=== PATIENT | female | born 1970 | race Caucasian/White ===

== ENCOUNTER 2024-10-08 15:37 | Outpatient (CLI) | payer BC, SELFPAY ==
[2024-10-10 16:49] LABS: HPV Source Cervix; HPV, High Risk by TMA Not Detected
== END 2024-10-08 15:38 | disposition home or self-care (01) ==
PROVIDERS: Visit Provider Registered Nurse
DX: Z12.4 Encounter for screening for malignant neoplasm of cervix (principal); Z11.51 Encounter for screening for human papillomavirus (HPV)
CPT/HCPCS: 87624; 87625; 88141; 88142

== ENCOUNTER 2024-10-17 07:55 | Outpatient (CLI) | payer BC, SELFPAY | END 2024-10-17 07:56 | disposition home or self-care (01) | LOC: NFLDREF 10-24 00:31 | PROVIDERS: Visit Provider Registered Nurse | DX: Z00.00 Encounter for general adult medical examination without abnormal findings (principal); Z13.6 Encounter for screening for cardiovascular disorders | CPT/HCPCS: 80061 ==

== ENCOUNTER 2024-11-27 13:20 | Outpatient (CLI) | payer BC, SELFPAY ==
--- NOTE | 2024-11-27 13:40 | CRLHL7_ITS ---
For Patients: As a result of the Cures Act, medical imaging exams and procedure reports are released immediately into your electronic medical record. You may view this report before your referring provider. If you have questions, please contact your health care provider. BILATERAL DIGITAL SCREENING MAMMOGRAM WITH COMPUTER-AIDED DETECTION AND TOMOSYNTHESIS CLINICAL HISTORY: : Routine screening exam. COMPARISON: No comparison TECHNIQUE: Digital mammogram in CC and MLO projections including computer-aided detection (CAD). Tomosynthesis was utilized. BREAST COMPOSITION: The breasts are extremely dense, which lowers the sensitivity of mammography. FINDINGS: RIGHT Breast: No suspicious findings. LEFT Breast: Asymmetry left breast 2 o`clock position 7 cm from the nipple. IMPRESSION: LEFT breast asymmetry/mass. RECOMMENDATIONS: Additional mammographic views of the LEFT breast including CC MLO spot-compression view 90 degree lateral view . LEFT breast ultrasound may also be required. A member of the health care team will contact the patient to schedule the required additional imaging appointment(s). BI-RADS Category 0: Incomplete: Need Additional Imaging Evaluation Dictated by Carlene Donahue MD @ 11/29/2024 7:37:37 AM Dictated by: Carlene Donahue MD @ 11/29/2024 07:37:48 (Electronically Signed)
== END 2024-11-27 13:21 | disposition home or self-care (01) ==
LOC: MAMMO 13:21
PROVIDERS: Visit Provider Registered Nurse
DX: Z12.31 Encounter for screening mammogram for malignant neoplasm of breast (principal); R92.343 Mammographic extreme density, bilateral breasts; N63.20 Unspecified lump in the left breast, unspecified quadrant
CPT/HCPCS: 77063; 77067

== ENCOUNTER 2024-12-08 10:31 | Outpatient (CLI) | payer BC, SELFPAY ==
--- NOTE | 2024-12-08 10:45 | CRLHL7_ITS ---
For Patients: As a result of the Cures Act, medical imaging exams and procedure reports are released immediately into your electronic medical record. You may view this report before your referring provider. If you have questions, please contact your health care provider. DIGITAL DIAGNOSTIC LEFT MAMMOGRAM USING TOMOSYNTHESIS LEFT BREAST ULTRASOUND CLINICAL HISTORY: LEFT breast mass/asymmetry. COMPARISON: 11/27/2024. TECHNIQUE: Digital LEFT mammogram in three projections. Tomosynthesis was used in this interpretation. Real-time ultrasound imaging of LEFT breast with imaging documentation. Scanning was performed by both the technologist and the radiologist. BREAST COMPOSITION: The breasts are heterogeneously dense, which may obscure small masses. FINDINGS: 3D spot compression CC, 3D spot compression MLO and 3D true lateral LEFT breast mammogram images submitted. Simple cyst is present within the retroareolar plane. Adjacent to this cyst at 3 o`clock 4 cm from the nipple, there is an ill-defined area of hypoechoic tissue measuring approximately 7 x 9 millimeters. IMPRESSION: Indeterminate hypoechoic tissue LEFT breast 3 o`clock 4 cm from the nipple measuring 9 x 7 millimeters at posterior depth, adjacent to a benign cyst. RECOMMENDATIONS: Ultrasound-guided core needle biopsy. A lay language report of this examination will be provided to the patient. BI-RADS Category 4: Suspicious Dictated by Acosta Barahona MD @ 12/08/2024 11:44:11 AM jj/Dictated by: Acosta Barahona MD @ 12/08/2024 11:44:00 AM (Electronically Signed)
--- NOTE | 2024-12-08 11:15 | CRLHL7_ITS ---
For Patients: As a result of the Cures Act, medical imaging exams and procedure reports are released immediately into your electronic medical record. You may view this report before your referring provider. If you have questions, please contact your health care provider. SEE DIGITAL DIAGNOSTIC LEFT MAMMOGRAM PERFORMED SAME DAY CRL:gina fuentes/Dictated by: Acosta Barahona MD @ 12/08/2024 12:06:00 PM (Electronically Signed)
== END 2024-12-08 10:32 | disposition home or self-care (01) ==
LOC: MAMMO 10:31
PROVIDERS: Visit Provider Registered Nurse
DX: N63.20 Unspecified lump in the left breast, unspecified quadrant (principal); R92.8 Other abnormal and inconclusive findings on diagnostic imaging of breast
CPT/HCPCS: 76642; 77065; G0279

== ENCOUNTER 2024-12-12 10:01 | Outpatient (CLI) | payer BC, SELFPAY ==
--- NOTE | 2024-12-12 10:15 | CRLHL7_ITS ---
For Patients: As a result of the Century Cures Act, medical imaging exams and procedure reports are released immediately into your electronic medical record. You may view this report before your referring provider. If you have questions, please contact your health care provider. ULTRASOUND-GUIDED BREAST BIOPSY AND POST-BIOPSY DIGITAL MAMMOGRAM FOR BIOPSY MARKER PLACEMENT CLINICAL HISTORY: Indeterminate dense tissue. COMPARISON STUDIES: 12/08/2024. TECHNIQUE: Real-time ultrasound with image documentation was used for targeting the breast lesion. Core biopsy specimens were obtained using an automated gun with an 18-gauge biopsy needle. Post-biopsy CC and ML digital mammograms were obtained to document position of the biopsy marker. CONSENT and TIME OUT: The procedure, risks, and alternatives were explained to the patient and a consent was signed. Dickinson Protocol was followed including pre-procedure verification that relevant information/documentation was available, reviewed and properly matched to the patient; consent accurate and complete; and equipment and supplies available. Time Out was conducted just prior to starting procedure to verify the four required elements: patient identity, correct side/site marked (if applicable), procedure, relevant images/results properly labeled and displayed (if applicable). PROCEDURE: The patient was positioned supine on the ultrasound table. The breast was prepped with ChloraPrep. 8 cc 1 percent lidocaine for local anesthesia. Core samples were obtained. A sterile metal biopsy clip was placed percutaneously to tyrell the lesion position within the breast. The specimens were placed in 10% formalin and sent to the pathology department. Pressure was held on the biopsy site until all bleeding subsided. The skin incision was closed with Steri-Strips. An ice pack was positioned over the biopsy site. Post-biopsy instructions were reviewed with the patient, and a written copy was given to her. LATERALITY: LEFT breast. LESION: Subtle dense heterogeneous tissue just lateral to a known cyst at 3 o`clock 4 cm from the nipple measuring approximately 7 millimeters. SUSPICION FOR MALIGNANCY: Intermediate. NUMBER OF SAMPLES: 8. BIOPSY CLIP SHAPE: Oval. PROXIMITY OF CLIP TO TARGET: Within the lesion. IMPRESSION: Ultrasound-guided breast biopsy. When the pathology report is available, an addendum to this report will be made. ACR not applicable Dictated by Acosta Barahona MD @ 12/12/2024 11:12:13 AM jj/Dictated by: Acosta Barahona MD @ 12/12/2024 11:12:00 AM (Electronically Signed)
--- NOTE | 2024-12-12 11:00 | CRLHL7_ITS ---
For Patients: As a result of the Century Cures Act, medical imaging exams and procedure reports are released immediately into your electronic medical record. You may view this report before your referring provider. If you have questions, please contact your health care provider. SEE ULTRASOUND-GUIDED LEFT BREAST BIOPSY PERFORMED SAME DAY CRL:gina fuentes/Dictated by: Acosta Barahona MD @ 12/12/2024 11:12:00 AM (Electronically Signed)
== END 2024-12-12 10:02 | disposition home or self-care (01) ==
LOC: US 10:02
PROVIDERS: Visit Provider Registered Nurse
DX: N63.20 Unspecified lump in the left breast, unspecified quadrant (principal); N60.02 Solitary cyst of left breast; R92.8 Other abnormal and inconclusive findings on diagnostic imaging of breast
CPT/HCPCS: 19083; 77065; 88305; A4648; A4649